=== PATIENT | male | born 1990 | race Caucasian/White ===

== ENCOUNTER 2021-06-12 02:39 | Emergency (ER) | payer MEDICAID ==
[~2021-06-12] VITALS: Ht 172.7 cm; Wt 90.9 kg
[2021-06-12 03:12] VITALS: BP 134/76
[2021-06-12] MEDS ORDERED: TETanus/Pertussis (Acell)/Diphther VAC/PF (Tdap-Adult) 0.5ml syringe IMVAC ONE (04:00)
[2021-06-12] MEDS ORDERED: LIDOcaine 1% W/epiNEPHrine 1:200,000 10ml vial IJ ONE (04:00)
[2021-06-12] MEDS ORDERED: LIDOcaine 1% w/epiNEPHrine 1:200,000 30ml vial IJ ONE (04:05)
== END 2021-06-12 05:50 | disposition home or self-care (01) ==
LOC: ER 02:40
DX: U07.1 COVID-19 (principal); S01.81XA Laceration without foreign body of other part of head, initial encounter; R42 Dizziness and giddiness; W22.8XXA Striking against or struck by other objects, initial encounter; Y93.89 Activity, other specified; Y92.89 Other specified places as the place of occurrence of the external cause; Y99.8 Other external cause status
CPT/HCPCS: 12011; 36415; 90715; 93005; 99284; U0003; U0005